=== PATIENT | female | born 1995 | race Caucasian/White ===

== ENCOUNTER → 2017-07-27 | Outpatient (CLI) | payer BC ==
[2016-02-23 23:10] VITALS: BP 154/52
[~2017-07-27] MED LIST: ALBU6.7H IH
--- NOTE | 2017-07-27 13:37 | RAD ---
Three-view right ankle radiographs 07/27/2017 CLINICAL HISTORY: Injury to the right ankle 24 hours ago. AP, lateral and oblique digital radiographs of the right ankle were obtained. The right ankle mortise is intact. No fracture or dislocation right ankle is seen. No significant degenerative changes are noted. IMPRESSION: No fracture or dislocation of the right ankle is seen. Electronically signed by: Connor Pathak MD (07/27/2017 1:33 PM) [id number]
== END | disposition home or self-care (01) ==
LOC: DXRAD 10:55
PROVIDERS: ATTEND Pediatrics
DX: S99.911D Unspecified injury of right ankle, subsequent encounter (principal); X58.XXXD Exposure to other specified factors, subsequent encounter
CPT/HCPCS: 73610